=== PATIENT | male | born 1960 | race Asian ===

== ENCOUNTER 2022-05-05 14:01 | Inpatient (IN) | payer MEDICAID ==
[~2022-05-05] VITALS: Ht 175.3 cm; Wt 78.9 kg
[2022-05-05 14:27] LABS: Basophils # (auto) 0.1 10 ^3/uL (0-0.2); Basophils % (auto) 0.8 % (0.0-2.0); Eosinophils # (auto) 0.2 10 ^3/uL (0-0.8); Lymphocytes # (auto) 1.5 10 ^3/uL (0.4-5.4)
[2022-05-05 14:30] LABS: Eosinophils % (auto) 3.1 % (0.0-7.0); Hemoglobin 12.1 g/dL (13.5-17.5); Lymphocytes % (auto) 18.2 % (10.0-50.0); Mean Corpuscular Hemoglobin 21.4 pg (28.0-32.0); Mean Corpuscular Hgb Conc. 31.1 g/dL (32.0-36.0); Mean Corpuscular Volume 68.7 fL (80.0-100.0); Monocytes # (auto) 1.1 10 ^3/uL (0-1.3); Monocytes % (auto) 13.2 % (0.0-12.0); Neutrophils # (auto) 5.2 10 ^3/uL (1.6-8.6); Neutrophils % (auto) 64.7 % (37.0-80.0); Nucleated Red Blood Cells % 0.5 %; Red Blood Cells 5.67 10^6/uL (4.5-5.90); Red Cell Distribution Width 15.8 % (11.8-14.3)
[2022-05-05 14:49] LABS: Albumin 3.6 g/dL (3.4-5.0); BUN/Creatinine Ratio 17.8; Calcium 9.4 mg/dL (8.5-10.1); Potassium 4.4 mmol/L (3.5-5.1)
[2022-05-05 14:51] LABS: Bilirubin, Total 0.7 mg/dL (0.2-1.0); Total Protein 7.8 g/dL (6.4-8.2)
[2022-05-05] MEDS ORDERED: ASPirin 81 mg TAB PO ONE (15:15)
[2022-05-05] MEDS ORDERED: MAGNESIUM SULFATE 1GM/100ML 100 ML IV ONE (15:45)
[2022-05-05] MEDS ORDERED: LOSA-39 PO (16:42)
[2022-05-05] MEDS ORDERED: ALLO100T PO (16:42)
[2022-05-05] MEDS ORDERED: AMLO-496 PO (16:42)
[2022-05-05] MEDS ORDERED: ATOR20TA50 PO (16:42)
[2022-05-05] MEDS ORDERED: HYDR12.55 PO (16:42)
[2022-05-05] MEDS ORDERED: MET25T PO (16:42)
[2022-05-05] MEDS ORDERED: DOCUSATE SOD 100 MG CAP PO PRN (16:45)
[2022-05-05] MEDS ORDERED: ACETAMINOPHEN 325 MG TAB PO PRN (16:45)
[2022-05-05] MEDS ORDERED: MORPHINE SULFATE INJ 2 MG/ml SYRG IV PRN (16:45)
[2022-05-05] MEDS: ATORVASTATIN 20 MG TAB PO SCH (22:00)
[2022-05-05] MEDS: METOPROLOL TARTRATE 25 MG TAB PO SCH (22:00)
[2022-05-06 04:53] VITALS: BP 133/78
[2022-05-06] MEDS ORDERED: CLON0.1T PO (05:41)
[2022-05-06] MEDS ORDERED: FAMO20TA58 (05:41)
[2022-05-06] MEDS ORDERED: MELO1TAB73 PO (05:41)
[2022-05-06 06:54] LABS: Basophils # (auto) 0.1 10 ^3/uL (0-0.2); Basophils % (auto) 0.9 % (0.0-2.0); Eosinophils # (auto) 0.3 10 ^3/uL (0-0.8); Eosinophils % (auto) 4.9 % (0.0-7.0); Hematocrit 37.9 % (41.0-53.0); Hemoglobin 11.9 g/dL (13.5-17.5); Lymphocytes # (auto) 1.2 10 ^3/uL (0.4-5.4); Mean Corpuscular Hemoglobin 21.4 pg (28.0-32.0); Mean Corpuscular Hgb Conc. 31.5 g/dL (32.0-36.0); Monocytes # (auto) 0.7 10 ^3/uL (0-1.3); Monocytes % (auto) 9.6 % (0.0-12.0); Neutrophils # (auto) 4.5 10 ^3/uL (1.6-8.6); Neutrophils % (auto) 66.6 % (37.0-80.0); Nucleated Red Blood Cells % 0.1 %; Red Blood Cells 5.58 10^6/uL (4.5-5.90); Red Cell Distribution Width 15.3 % (11.8-14.3); White Blood Cell 6.8 10^3/uL (4.4-10.8)
[2022-05-06 07:04] LABS: Albumin 3.5 g/dL (3.4-5.0); BUN/Creatinine Ratio 19.4; Calcium 9.3 mg/dL (8.5-10.1); Magnesium 1.9 mg/dL (1.6-2.6)
[2022-05-06 07:10] LABS: Bilirubin, Total 0.8 mg/dL (0.2-1.0); Total Protein 7.4 g/dL (6.4-8.2)
[2022-05-06 08:00] VITALS: BP 123/76
[2022-05-06] MEDS: HYDROcodone-ACET 5/325MG TAB PO PRN ×2 (08:16→13:16)
[2022-05-06] MEDS: ALLOPURINOL 100 MG TAB PO SCH (08:18)
[2022-05-06] MEDS: HCTZ 25 MG TAB PO SCH (08:18)
[2022-05-06] MEDS: ASPirin 81 mg TAB PO SCH (08:18)
[2022-05-06] MEDS: LOSARTAN POTASSIUM 50 MG TAB PO SCH (08:19)
[2022-05-06] MEDS: amLODIPine BESYLATE 5 MG TAB PO SCH (08:20)
[2022-05-06] MEDS: METOPROLOL TARTRATE 25 MG TAB PO SCH ×2 (08:20→21:51)
[2022-05-06] MEDS: PANTOPRAZOLE 40 MG/10 ML VIAL INJ IV SCH (08:21)
[2022-05-06] MEDS: ENOXAPARIN SOD 40 MG/0.4 ML SYRINGE SC SCH (08:26)
[2022-05-06 09:30] VITALS: BP 123/79
[2022-05-06] MEDS ORDERED: PNEUMOCOCCAL VACC POLYS 25 MCG/0.5 ML VIAL IM ONE (10:00)
[2022-05-06] MEDS: ONDANSETRON HCL 4 MG/2 ML VIAL IV PRN (12:27)
[2022-05-06 14:39] VITALS: BP 127/74
[2022-05-06 16:00] VITALS: BP 120/71
[2022-05-06] MEDS: ATORVASTATIN 20 MG TAB PO SCH (21:51)
[2022-05-06 22:00] VITALS: BP 113/80
[2022-05-07 05:00] VITALS: BP 111/73
[2022-05-07] MEDS ORDERED: diphenhdrAMINE HCL 50 MG/1 ML VL IV ONE (05:45)
[2022-05-07] MEDS: NITROGLYCERIN 0.4 MG SL TAB SL PRN (08:46)
[2022-05-07 08:53] VITALS: BP 132/91
[2022-05-07] MEDS: ENOXAPARIN SOD 40 MG/0.4 ML SYRINGE SC SCH (10:29)
[2022-05-07] MEDS: PANTOPRAZOLE 40 MG/10 ML VIAL INJ IV SCH (10:31)
[2022-05-07] MEDS: ASPirin 81 mg TAB PO SCH (10:31)
[2022-05-07] MEDS: ALLOPURINOL 100 MG TAB PO SCH (10:31)
[2022-05-07] MEDS: METOPROLOL TARTRATE 25 MG TAB PO SCH ×2 (10:33→21:20)
[2022-05-07] MEDS: HCTZ 25 MG TAB PO SCH (10:34)
[2022-05-07] MEDS: diphenhdrAMINE HCL 50 MG/1 ML VL IV PRN ×2 (11:39→20:02)
[2022-05-07] MEDS: amLODIPine BESYLATE 5 MG TAB PO SCH (11:47)
[2022-05-07] MEDS: LOSARTAN POTASSIUM 50 MG TAB PO SCH (11:48)
[2022-05-07 13:00] VITALS: BP 116/78
[2022-05-07 17:00] VITALS: BP 119/76
[2022-05-07] MEDS: ATORVASTATIN 20 MG TAB PO SCH (21:20)
[2022-05-07 22:00] VITALS: BP 105/71
[2022-05-08 05:25] VITALS: BP 111/72
[2022-05-08 08:20] VITALS: BP 125/85
[2022-05-08 08:37] VITALS: BP 120/75
[2022-05-08] MEDS: PANTOPRAZOLE 40 MG/10 ML VIAL INJ IV SCH (09:32)
[2022-05-08] MEDS: ENOXAPARIN SOD 40 MG/0.4 ML SYRINGE SC SCH (09:33)
[2022-05-08] MEDS: amLODIPine BESYLATE 5 MG TAB PO SCH (09:33)
[2022-05-08] MEDS: ASPirin 81 mg TAB PO SCH (09:33)
[2022-05-08] MEDS: HCTZ 25 MG TAB PO SCH (09:34)
[2022-05-08] MEDS: METOPROLOL TARTRATE 25 MG TAB PO SCH ×2 (09:34→21:09)
[2022-05-08] MEDS: LOSARTAN POTASSIUM 50 MG TAB PO SCH (09:35)
[2022-05-08] MEDS: ALLOPURINOL 100 MG TAB PO SCH (09:35)
[2022-05-08 13:26] VITALS: BP 124/68
[2022-05-08] MEDS: PIPERACILLIN-TAZOB 3.375GM 100 ML IV SCH ×2 (15:14→20:53)
[2022-05-08] MEDS: ONDANSETRON HCL 4 MG/2 ML VIAL IV PRN (16:05)
[2022-05-08] MEDS: diphenhdrAMINE HCL 50 MG/1 ML VL IV PRN (16:10)
[2022-05-08] MEDS ORDERED: MAGNESIUM SULFATE 1GM/100ML 100 ML IV ONE (17:15)
[2022-05-08 17:18] VITALS: BP 126/71
[2022-05-08] MEDS: diphenhdrAMINE HCL 25 MG CAP PO SCH (20:54)
[2022-05-08] MEDS: ATORVASTATIN 20 MG TAB PO SCH (20:55)
[2022-05-08] MEDS: FAMOTIDINE 20 MG TAB PO SCH (20:55)
[2022-05-08 22:00] VITALS: BP 116/75
[2022-05-09] VITALS (9 sets, daily range): BP systolic 107–142; BP diastolic 67–79
[2022-05-09] MEDS: PIPERACILLIN-TAZOB 3.375GM 100 ML IV SCH ×4 (02:33→21:01)
[2022-05-09 05:46] LABS: Basophils # (auto) 0 10 ^3/uL (0-0.2); Eosinophils # (auto) 0.3 10 ^3/uL (0-0.8); Monocytes # (auto) 0.7 10 ^3/uL (0-1.3); Nucleated Red Blood Cells % 0.1 %
[2022-05-09 05:49] LABS: Basophils % (auto) 0.5 % (0.0-2.0); Hematocrit 40.5 % (41.0-53.0); Hemoglobin 12.7 g/dL (13.5-17.5); Lymphocytes % (auto) 13.9 % (10.0-50.0); Mean Corpuscular Hemoglobin 21.4 pg (28.0-32.0); Mean Corpuscular Hgb Conc. 31.3 g/dL (32.0-36.0); Mean Corpuscular Volume 68.3 fL (80.0-100.0); Monocytes % (auto) 10.2 % (0.0-12.0); Neutrophils # (auto) 5.2 10 ^3/uL (1.6-8.6); Neutrophils % (auto) 71.4 % (37.0-80.0); Red Blood Cells 5.94 10^6/uL (4.5-5.90); Red Cell Distribution Width 15.5 % (11.8-14.3); White Blood Cell 7.2 10^3/uL (4.4-10.8)
[2022-05-09 05:54] LABS: BUN/Creatinine Ratio 22.5; Magnesium 2.1 mg/dL (1.6-2.6); Potassium 4.2 mmol/L (3.5-5.1)
[2022-05-09] MEDS: ENOXAPARIN SOD 40 MG/0.4 ML SYRINGE SC SCH (09:50)
[2022-05-09] MEDS: LOSARTAN POTASSIUM 50 MG TAB PO SCH (09:52)
[2022-05-09] MEDS: predniSONE 20 MG TAB PO SCH (09:52)
[2022-05-09] MEDS: ASPirin 81 mg TAB PO SCH (09:53)
[2022-05-09] MEDS: FAMOTIDINE 20 MG TAB PO SCH ×2 (09:54→21:00)
[2022-05-09] MEDS: diphenhdrAMINE HCL 25 MG CAP PO SCH ×2 (09:54→20:59)
[2022-05-09] MEDS: HCTZ 25 MG TAB PO SCH (09:55)
[2022-05-09] MEDS: METOPROLOL TARTRATE 25 MG TAB PO SCH ×2 (09:55→21:00)
[2022-05-09] MEDS: PANTOPRAZOLE 40 MG/10 ML VIAL INJ IV SCH (09:55)
[2022-05-09] MEDS: ALLOPURINOL 100 MG TAB PO SCH (09:56)
[2022-05-09] MEDS: amLODIPine BESYLATE 5 MG TAB PO SCH (10:00)
[2022-05-09] MEDS: NITROGLYCERIN 0.4 MG SL TAB SL PRN (10:07)
[2022-05-09 12:00] LABS: INR 0.97 (0.9-1.15); Partial Thromboplastin Time 31.9 sec (24.6-33.4)
[2022-05-09] MEDS ORDERED: HEPARIN SODIUM (PORCINE) 5000 UNITS/ML 1ML VIAL ONE (14:56)
[2022-05-09] MEDS ORDERED: LIDOCAINE 2%HCL (LOCAL ANESTH.) INJ 10ml MDV ONE (14:57)
[2022-05-09] MEDS ORDERED: VERAPAMIL 2.5MG/ML INJ 2ML VIAL IV ONE (14:57)
[2022-05-09] MEDS ORDERED: MIDAZOLAM HCL 2MG/2ML 2ml VIAL (1mg/ml) ONE (14:57)
[2022-05-09] MEDS ORDERED: fentaNYL CITRATE 100 MCG/2 ML VL ONE (14:57)
[2022-05-09] MEDS ORDERED: IODIXANOL 320MG/ML 100ML BTL IV ONE (14:57)
[2022-05-09] MEDS ORDERED: methylPREDNISolone SOD SUCC 125 MG/2 ML VL ONE (15:00)
[2022-05-09] MEDS ORDERED: diphenhdrAMINE HCL 50 MG/1 ML VL ONE (15:00)
[2022-05-09] MEDS ORDERED: FAMOTIDINE (10MG/ML) 2ML VL IV ONE (15:01)
[2022-05-09] MEDS ORDERED: ANGIOMAX 250 MG VIAL IV ONE (15:39)
[2022-05-09] MEDS ORDERED: CLOPIDOGREL 300 MG TAB ONE (15:51)
[2022-05-09] MEDS ORDERED: ASPirin 325 MG TAB ONE (15:51)
[2022-05-09] MEDS ORDERED: GADOTERATE MEG 10 MMOL/20ml INJ (0.5MMOL/ml) IV ONE (16:42)
[2022-05-09] MEDS: ATORVASTATIN 20 MG TAB PO SCH (20:59)
[2022-05-10] MEDS: PIPERACILLIN-TAZOB 3.375GM 100 ML IV SCH ×2 (02:10→08:45)
[2022-05-10 05:00] VITALS: BP 119/77
[2022-05-10] MEDS: PANTOPRAZOLE 40 MG/10 ML VIAL INJ IV SCH (08:45)
[2022-05-10] MEDS: predniSONE 20 MG TAB PO SCH (08:46)
[2022-05-10] MEDS: diphenhdrAMINE HCL 25 MG CAP PO SCH (08:47)
[2022-05-10] MEDS: ALLOPURINOL 100 MG TAB PO SCH (08:47)
[2022-05-10] MEDS: FAMOTIDINE 20 MG TAB PO SCH (08:47)
[2022-05-10 09:00] VITALS: BP 151/92
[2022-05-10] MEDS: amLODIPine BESYLATE 5 MG TAB PO SCH (09:20)
[2022-05-10] MEDS: ENOXAPARIN SOD 40 MG/0.4 ML SYRINGE SC SCH (09:21)
[2022-05-10] MEDS: HCTZ 25 MG TAB PO SCH (09:21)
[2022-05-10] MEDS: METOPROLOL TARTRATE 25 MG TAB PO SCH (09:24)
[2022-05-10] MEDS ORDERED: ASPirin 81 mg TAB PO SCH (10:00)
[2022-05-10] MEDS ORDERED: CLOPIDOGREL BISULFATE 75 MG TAB PO SCH (10:00)
[2022-05-10 10:40] VITALS: BP 130/92
[2022-05-10] MEDS ORDERED: ASPI-325 PO (11:14)
[2022-05-10] MEDS ORDERED: CLOP75TA70 PO (11:14)
[2022-05-10] MEDS ORDERED: ATOR20TA50 PO (11:16)
[2022-05-10] MEDS ORDERED: AMOX-277 PO (11:16)
[2022-05-10 11:47] VITALS: BP 126/83
[2022-05-10] MEDS ORDERED: CLOP75TA28 PO (12:19)
== END 2022-05-10 13:50 | disposition home or self-care (01) | DRG 174 ==
LOC: ER 14:01 → TELE 16:35 → TELE-CENTR 23:52
PROVIDERS: ADMIT Nurse Practitioner Family; ATTEND Internal Medicine
PROC: 4A023N7 Measurement of Cardiac Sampling and Pressure, Left Heart, Percutaneous Approach (ICD-10-PCS; principal; 2022-05-09)
PROC: 027034Z Dilation of Coronary Artery, One Artery with Drug-eluting Intraluminal Device, Percutaneous Approach (ICD-10-PCS; 2022-05-09)
PROC: B211YZZ Fluoroscopy of Multiple Coronary Arteries using Other Contrast (ICD-10-PCS; 2022-05-09)
PROC: B215YZZ Fluoroscopy of Left Heart using Other Contrast (ICD-10-PCS; 2022-05-09)
DX: I21.4 Non-ST elevation (NSTEMI) myocardial infarction (principal); E78.5 Hyperlipidemia, unspecified; E83.42 Hypomagnesemia; I12.9 Hypertensive chronic kidney disease with stage 1 through stage 4 chronic kidney disease, or unspecified chronic kidney disease; M10.9 Gout, unspecified; N18.30 Chronic kidney disease, stage 3 unspecified; I25.10 Atherosclerotic heart disease of native coronary artery without angina pectoris; L02.01 Cutaneous abscess of face; T40.2X5A Adverse effect of other opioids, initial encounter; L03.211 Cellulitis of face; Z20.822 Contact with and (suspected) exposure to COVID-19; Z87.891 Personal history of nicotine dependence; Z91.041 Radiographic dye allergy status; Y92.89 Other specified places as the place of occurrence of the external cause; Z88.5 Allergy status to narcotic agent
CPT/HCPCS: 36415; 70486; 71046; 73706; 78452; 80048; 80053; 83735; 83880; 84484; 85025; 85610; 85730; 87426; 92928; 93005; 93017; 93306; 93458; 96365; 99152; 99153; 99291; C1874; C9113; G0378; J2001; J2250; J2405; J2543; J3490; Q9967

== ENCOUNTER → 2024-05-05 | Outpatient (CLI) | payer MEDICAID ==
[~2024-05-05] MED LIST: ALLO100T PO; AMLO1TAB23 PO; AMOX875T4 PO; ASPI-325 PO; ATOR20TA50 PO; CLON0.1T PO; CLOP75TA28 PO; CLOP75TA70 PO; FAMO20TA58; LOSA-535 PO; MELO7.5T7 PO; MET25T PO
[2024-05-05 10:00] LABS: Basophils # (auto) 0.1 10 ^3/uL (0-0.2); Basophils % (auto) 0.7 % (0.0-2.0); Eosinophils # (auto) 0.3 10 ^3/uL (0-0.8); Eosinophils % (auto) 3.5 % (0.0-7.0); Hematocrit 40.4 % (41.0-53.0); Hemoglobin 12.8 g/dL (13.5-17.5); Lymphocytes # (auto) 1.4 10 ^3/uL (0.4-5.4); Lymphocytes % (auto) 17.1 % (10.0-50.0); Mean Corpuscular Hemoglobin 21.8 pg (28.0-32.0); Mean Corpuscular Hgb Conc. 31.7 g/dL (32.0-36.0); Mean Corpuscular Volume 68.7 fL (80.0-100.0); Monocytes # (auto) 0.7 10 ^3/uL (0-1.3); Monocytes % (auto) 8.9 % (0.0-12.0); Neutrophils # (auto) 5.8 10 ^3/uL (1.6-8.6); Neutrophils % (auto) 69.8 % (37.0-80.0); Platelet Count (auto) 289 10^3/uL (140-450); Red Blood Cells 5.87 10^6/uL (4.5-5.90); Red Cell Distribution Width 16.7 % (11.8-14.3); White Blood Cell 8.3 10^3/uL (4.4-10.8)
[2024-05-05 10:13] LABS: Alanine Aminotransferase 24 U/L (7-40); Albumin 4.3 g/dL (3.2-4.8); Anion Gap 5 (5-15); Aspartate Aminotransferase 16 U/L (13-40); BUN/Creatinine Ratio 20.8 (10.0-20.0); Blood Urea Nitrogen 21 mg/dL (9-23); Calcium 10.3 mg/dL (8.7-10.4); Carbon Dioxide 29 mmol/L (20-31); Chloride 105 mmol/L (98-107); Cholesterol 147 mg/dL (< 200); Glucose 89 mg/dL (74-106); HDL Cholesterol 54 mg/dL (40-59); LDL Cholesterol 79 mg/dL (< 100); Potassium 4.5 mmol/L (3.5-5.1); Sodium 139 mmol/L (136-145); Triglycerides 107 mg/dL (< 150)
[2024-05-05 10:14] LABS: Bilirubin, Total 0.7 mg/dL (0.2-1.0); Total Protein 7.5 g/dL (5.7-8.2)
[2024-05-05 10:16] LABS: Alkaline Phosphatase 122 U/L (46-116)
== END | disposition home or self-care (01) ==
LOC: LAB 09:21
PROVIDERS: ATTEND Nurse Practitioner Family
DX: I12.9 Hypertensive chronic kidney disease with stage 1 through stage 4 chronic kidney disease, or unspecified chronic kidney disease (principal); N18.2 Chronic kidney disease, stage 2 (mild); R73.01 Impaired fasting glucose
CPT/HCPCS: 36415; 80053; 80061; 82043; 82306; 83036; 84439; 84443; 85025